=== PATIENT | female | born 1940 | race Caucasian/White ===

== ENCOUNTER 2018-02-14 10:45 | Day surgery (SDC) | payer MEDICARE ==
[~2018-02-14 10:45] MED LIST: ALBUIS INH; ESCI10; HYDACE5 PO; NAPR500 PO; PRED20 PO
[2018-02-14] MEDS ORDERED: LORA.5 PO (14:16)
[2018-02-14] MEDS ORDERED: PROC5 PO (14:17)
[2018-02-14] MEDS ORDERED: CALCA400CH PO (14:17)
[2018-02-14] MEDS ORDERED: IRBE150 PO (14:20)
[2018-02-14] MEDS ORDERED: Coenzyme Q10100 M1 PO (14:20)
[2018-02-14] MEDS ORDERED: Curcumin1 GM PO (14:21)
[2018-02-14] MEDS ORDERED: HAWTHORN150 MG PO (14:21)
[2018-02-14] MEDS ORDERED: CHOL10002 PO (14:22)
[2018-02-14] MEDS ORDERED: Hair, Skin & N1 EACH PO (14:22)
== END 2018-02-14 13:58 | disposition home or self-care (01) ==
LOC: ATC 10:45
DX: C18.8 Malignant neoplasm of overlapping sites of colon (principal)
CPT/HCPCS: 96523; J1642